=== PATIENT | female | born 1995 | race Caucasian/White ===

== ENCOUNTER 2020-08-16 18:02 | Emergency (ER) | payer OTHER ==
[~2020-08-16] VITALS: Ht 162.6 cm; Wt 45.8 kg
[2020-08-16 18:19] VITALS: Ht 162.6 cm; Wt 45.8 kg
[2020-08-16] MEDS ORDERED: IBU600 M2 PO (20:33)
[2020-08-16] MEDS ORDERED: BACITRACIN3.5 GM OP (20:33)
[2020-08-16] MEDS ORDERED: ACETAMINOPHEN-H1 TA1 PO ×2 (20:33→20:35)
[2020-08-16 21:03] VITALS: BP 109/55
== END 2020-08-16 21:03 | disposition home or self-care (01) ==
LOC: ED 18:02
DX: S52.602A Unspecified fracture of lower end of left ulna, initial encounter for closed fracture (principal); S50.812A Abrasion of left forearm, initial encounter; V43.52XA Car driver injured in collision with other type car in traffic accident, initial encounter; Y93.I9 Activity, other involving external motion; Y92.413 State road as the place of occurrence of the external cause; Y99.8 Other external cause status
CPT/HCPCS: 90715; J1885; Q0162